=== PATIENT | male | born 1960 | race African-American/Black ===

== ENCOUNTER 2020-04-26 06:08 | Outpatient (CLI) | payer OTHER ==
[2020-05-02] MEDS ORDERED: ASPI-992 PO (11:15)
[2020-05-02] MEDS ORDERED: CYCL10TA9 PO (11:15)
[2020-05-02] MEDS ORDERED: OXYC5CAP18 PO (11:15)
== END 2020-04-26 23:59 | disposition home or self-care (01) ==
LOC: LAB 06:08
PROVIDERS: ATTEND Specialist
DX: Z01.812 Encounter for preprocedural laboratory examination (principal); Z20.828 Contact with and (suspected) exposure to other viral communicable diseases
CPT/HCPCS: 87426; C9803 ×2; U0003

== ENCOUNTER 2020-04-30 05:11 | Inpatient (IN) | payer OTHER ==
[~2020-04-30] VITALS: Ht 180.3 cm; Wt 99.8 kg
[2020-04-30] MEDS ORDERED: BACITRACIN 50000 UNITS/VIAL ONE (05:50)
[2020-04-30] MEDS ORDERED: BUPIVACAINE 0.5 % PF 150 MG/30 ML VIAL ONE (05:50)
[2020-04-30] MEDS ORDERED: MIDAZOLAM HCL 2 MG/2ML VIAL ONE (06:06)
[2020-04-30] MEDS ORDERED: FENTANYL PF 250MCG/5ML AMPUL ONE (06:07)
[2020-04-30] MEDS ORDERED: HYDROMORPHONE INJ 2 MG/ML DISP.SYRIN ONE (06:07)
[2020-04-30] MEDS ORDERED: BUPIVACAINE 0.25% 75 MG/30 ML VIAL ONE ×2 (06:08→08:43)
[2020-04-30] MEDS ORDERED: TRANEXAMIC ACID 3,000 MG in SODIUM CHLORIDE IRRIG SOLUTION 70 ML IR ONE (07:00)
[2020-04-30] MEDS ORDERED: HYDROMORPHONE 1 MG/1 ML DISP.SYRIN ONE (09:55)
[2020-04-30] MEDS ORDERED: IV D5/ 0.9% NACL 1,000 ML IV PRN (10:00)
[2020-04-30] MEDS ORDERED: ONDANSETRON HCL/PF 4 MG/2 ML VIAL IVP PRN ×2 (10:00→11:00)
[2020-04-30] MEDS ORDERED: HYDROCODONE/APAP 5/325MG TABLET PO PRN (10:00)
[2020-04-30] MEDS ORDERED: ACETAMINOPHEN 325 MG TABLET PO PRN (10:00)
[2020-04-30] MEDS ORDERED: DOCUSATE SODIUM 250 MG CAPSULE PO PRN (10:00)
[2020-04-30] MEDS ORDERED: ZOLPIDEM TARTRATE 5 MG TABLET PO PRN (10:00)
[2020-04-30] MEDS ORDERED: SENNOSIDES 8.6 MG TABLET PO PRN (10:00)
[2020-04-30] MEDS ORDERED: BISACODYL SUPP (10 MG) 10 MG/SUPP.RECT SUPP.RECT RC PRN (10:00)
[2020-04-30 10:45] VITALS: BP 153/94
--- NOTE | 2020-04-30 10:45 | NUR ---
RECEIVED PT FROM [facility]. S/P LT KNEE TOTAL ARTHROPLASTY BY DR LEVIN. PT IS ALERT AND IS SLEEPY.ON O2 AT 2L/MIN VIA NC. O2 SAT 98%NV/S 153/94 HR 93 RR 16 T 97.8 O2 SAT 98%.WITH LT KNEE SURGICAL KNEE WOUND DRSG CLEAN,INTACT AND DRY. FOR P.T. EVAL WITH FWB ON LLE WITH ORTHO ORDERS CARRIED OUT. FOR INCENTIVE SPIROMETER Q 1 HR WHILE AWAKE, DR CANTRELL FOR PAIN MGT.ROOM ORIENTATION AND USE OF CALL LIGHT PROVIDED.WILL MONITOR.CALL LIGHT PLACED WITHIN REACH.
[2020-04-30] MEDS ORDERED: NALOXONE HCL 0.4 MG/ML AMPUL IV PRN (11:00)
[2020-04-30] MEDS ORDERED: MAG HYDROX/AL HYDROX/SIMETH 30 ML UDC PO PRN (11:00)
[2020-04-30] MEDS ORDERED: CLONIDINE HCL 0.1 MG TABLET PO PRN (11:00)
[2020-04-30] MEDS ORDERED: diphenhydrAMINE HCL 25 MG CAPSULE PO PRN (11:00)
[2020-04-30] MEDS ORDERED: MENTHOL/CETYLPYRD (CEPACOL) 1 LOZ LOZENGE MM PRN (11:00)
[2020-04-30] MEDS ORDERED: MAGNESIUM HYDROXIDE 30 ML UDC PO PRN (11:00)
[2020-04-30 12:00] VITALS: BP 143/75
[2020-04-30] MEDS: HYDROMORPHONE 1 MG/1 ML DISP.SYRIN SQ PRN ×2 (12:38→18:10)
[2020-04-30] MEDS: TAMSULOSIN 0.4 MG CAP.SR.24H PO SCH (12:39)
[2020-04-30] MEDS: ANCEF 1 GM/50 ML D5W IV SCH ×4 (15:35→23:17)
[2020-04-30 16:00] VITALS: BP 147/86
[2020-04-30] MEDS: DOCUSATE SODIUM 100 MG CAPSULE PO SCH (17:29)
--- NOTE | 2020-04-30 18:00 | NUR ---
SEEN BY DR CANTRELL FOR PAIN MGT WITH ORDERS MADE AND CARRIED OUT.
[2020-04-30] MEDS ORDERED: OXYC1TAB12 MT (18:49)
[2020-04-30] MEDS ORDERED: CYCL10TA9 PO (18:49)
[2020-04-30] MEDS ORDERED: oxyCODONE IR immediate release 5 MG PO ONE (18:55)
--- NOTE | 2020-04-30 19:00 | NUR ---
PT COMFORTABLY RESTING AT THIS TIME WITH CALL LIGHT PLACED WITHIN REACH.IVF DC'D.
[2020-04-30 20:00] VITALS: BP 143/96
[2020-04-30] MEDS: FAMOTIDINE (20 MG) 20 MG TABLET PO SCH (21:24)
[2020-04-30] MEDS: HYDROMORPHONE 1 MG/1 ML DISP.SYRIN IV PRN (21:31)
[2020-05-01] MEDS: oxyCODONE IR immediate release 5 MG PO PRN ×3 (00:21→17:56)
[2020-05-01] MEDS: HYDROMORPHONE 1 MG/1 ML DISP.SYRIN IV PRN ×4 (05:11→21:21)
[2020-05-01] MEDS: CYCLOBENZAPRINE 10 MG TABLET PO PRN (05:53)
[2020-05-01 07:06] LABS: BASOPHILS % (AUTO) 0.2 % (0.0-2.0); EOSINOPHILS % (AUTO) 0.5 % (0.0-6.0); HEMATOCRIT 46 % (39-51); HEMOGLOBIN 15.4 g/dL (13.5-17.5); LYMPHOCYTES # (AUTO) 0.6 /CMM (0.8-4.8); LYMPHOCYTES % (AUTO) 7.9 % (20.0-44.0); MEAN CORPUSCULAR HGB CONC 34 g/dl (31.0-36.0); MEAN CORPUSCULAR VOLUME 95 fL (80-96); MONOCYTES # (AUTO) 0.6 /CMM (0.1-1.30); MONOCYTES % (AUTO) 7.1 % (2.0-12.0); NEUTROPHILS # (AUTO) 6.7 /CMM (1.8-8.9); NEUTROPHILS % (AUTO) 84.3 % (43.0-81.0); PLATELET COUNT (AUTO) 213 /CMM (150-450)
[2020-05-01 07:23] LABS: CALCIUM, SERUM 8.5 mg/dL (8.5-10.1); MAGNESIUM 2.1 mg/dL (1.8-2.4); PHOSPHORUS 2.7 mg/dL (2.5-4.9); POTASSIUM 4.4 mmol/L (3.5-5.1)
[2020-05-01 07:35] LABS: THYROID STIMULATING HORMONE 0.349 uIU/mL (0.358-3.74)
--- NOTE | 2020-05-01 07:53 | NUR ---
MS/RN OPENING NOTES RECEIVED PATIENT ON BED, AWAKE, ALERT AND ORIENTED X 4. NO COMPLAINED OF PAIN AT THIS TIME. NO APPARENT RESPIRATORY DISTRESS NOTED. WILL CONTINUE TO MONITOR.
[2020-05-01 08:00] VITALS: BP 139/91
[2020-05-01] MEDS: DOCUSATE SODIUM 100 MG CAPSULE PO SCH ×2 (09:17→17:56)
[2020-05-01] MEDS: TAMSULOSIN 0.4 MG CAP.SR.24H PO SCH (09:17)
[2020-05-01] MEDS: FAMOTIDINE (20 MG) 20 MG TABLET PO SCH ×2 (09:17→21:19)
[2020-05-01] MEDS: ASPIRIN 325 MG TABLET PO SCH (09:17)
--- NOTE | 2020-05-01 19:06 | NUR ---
MS/RN CLOSING NOTES PATIENT IS ON BED, ALERT AND ORIENTED X4. PATIENT IN NO APPARENT RESPIRATORY DISTRESS NOTED. PATIENT DENIES PAIN AT THIS TIME. PATIENT REFUSED TO CHANGE THE DRESSING. SEEN AND EXAMINED BY MD WITH ORDERS MADE AND CARRIED OUT. ALL DUE MEDICATIONS WAS GIVE. SAFETY PRECAUTIONS WAS IN PLACED. WILL ENDORSED TO RETRIEVAL SPECIALIST FOR JOSUE.
--- NOTE | 2020-05-01 19:30 | NUR ---
RN OPENING NOTES Received patient, awake on bed, watching TV. No complaints made at this time. Kept on bed clean, dry and comfortable. On fall and aspiration precautions. Will continue to monitor accordingly.
[2020-05-01 20:00] VITALS: BP 144/71
--- NOTE | 2020-05-01 21:25 | NUR ---
MS RN NOTE: PAIN patient verbalized c/o pain 8/10 to left knee, requested to get Dilaudid at this time. prn Dilaudid given as ordered. will continue to monitor.
[2020-05-01 22:00] VITALS: BP 135/82
[2020-05-02] MEDS: oxyCODONE IR immediate release 5 MG PO PRN ×2 (02:25→12:48)
--- NOTE | 2020-05-02 02:29 | NUR ---
MS RN NOTE: LEFT KNEE PAIN PATIENT C/O LEFT KNEE PAIN 07/17, REQUESTED TO GET PAIN MEDICINE, PRN OXYCODONE IR 5 MG 1 TAB PO GIVEN. WILL REASSESS FOR THE EFFECTIVENESS.
--- NOTE | 2020-05-02 04:50 | NUR ---
MS RN NOTE: SEEN BY DR. CANTRELL PATIENT SEEN BY DR. CANTRELL & MD DISCUSSED PLAN OF CARE WITH THE PATIENT & PER PATIENT HE WOULD LIKE TO BE DISCHARGED BACK HOME ON 05/03/2020. DR. CANTRELL IS AWARE & WILL ENDORSE TO AM RN WELL.
[2020-05-02] MEDS ORDERED: MAGNESIUM HYDROXIDE 30 ML UDC PO ONE (04:58)
--- NOTE | 2020-05-02 05:12 | NUR ---
MS RN NOTE DR. CANTRELL ORDERED MILK OF MAGNESIA ONCE, ORDER NOTED & CARRIED OUT. MILK OF MAGNESIA ADMINISTERED TO THE PATIENT & TOLERATED WELL. WILL CONTINUE TO MONITOR.
--- NOTE | 2020-05-02 07:41 | NUR ---
MS RN NOTE: REFUSED LEFT KNEE DRESSING CHANGE INFORMED THE PATIENT THAT HIS DRESSING NEEDS TO BE CHANGED, PER AM RN ON 05/01/2020, PATIENT REFUSED TO CHANGE HIS DRESSING ORDERED. PATIENT AGAIN REFUSED TO GET HIS DRESSING CHANGED & STATED," LATER.' ENDORSED TO AM RN TO CHANGE THE DRESSING DURING AM SHIFT.
--- NOTE | 2020-05-02 07:46 | NUR ---
MS RN CLOSING NOTE NO ACUTE CHANGES NOTED THROUGH OUT THE SHIFT. PAIN MANAGEMENT DONE. KEPT PATIENT COMFORTABLE. PATIENT IN STABLE CONDITION. ENDORSED TO AM RN FOR CONTINUITY OF CARE.
--- NOTE | 2020-05-02 08:00 | NUR ---
RN OPENING NOTES PATIENT PRESENT IN BED, A/OX4, ON BED REST, LEFT KNEE AND LEG POST SURGICAL DRESSING IN PLACE, ON ROOM AIR, TOLERATING WELL, SPO2 IS 99%, SPIROMETER AT BED SITE, ENCOURAGE TO USE IT, L AC IV LINE IN PACE, INTACT AND PATENT, SAFETY MEASURES IN PLACE, CALL LIGHT IN REACH, BED IS BRIDGER IN LOWEST POSITION, HOB ELEVATED , WILL CONT TO MONITOR ,
[2020-05-02] MEDS: HYDROMORPHONE 1 MG/1 ML DISP.SYRIN IV PRN (08:56)
[2020-05-02] MEDS: DOCUSATE SODIUM 100 MG CAPSULE PO SCH ×2 (09:02→17:30)
[2020-05-02] MEDS: FAMOTIDINE (20 MG) 20 MG TABLET PO SCH (09:02)
[2020-05-02] MEDS: ASPIRIN 325 MG TABLET PO SCH (09:02)
[2020-05-02 09:10] LABS: BASOPHILS # (AUTO) 0.1 /CMM (0.0-0.2); BASOPHILS % (AUTO) 0.9 % (0.0-2.0); EOSINOPHILS % (AUTO) 0.8 % (0.0-6.0); HEMATOCRIT 46 % (39-51); LYMPHOCYTES # (AUTO) 1.1 /CMM (0.8-4.8); LYMPHOCYTES % (AUTO) 11.5 % (20.0-44.0); MEAN CORPUSCULAR HGB CONC 33 g/dl (31.0-36.0); MEAN CORPUSCULAR VOLUME 96 fL (80-96); MONOCYTES # (AUTO) 1.1 /CMM (0.1-1.30); MONOCYTES % (AUTO) 11.7 % (2.0-12.0); NEUTROPHILS # (AUTO) 7.3 /CMM (1.8-8.9); NEUTROPHILS % (AUTO) 75.1 % (43.0-81.0); PLATELET COUNT (AUTO) 196 /CMM (150-450); RED BLOOD CELL COUNT(AUTO) 4.75 MIL/uL (4.5-6.0); WHITE BLOOD COUNT (AUTO) 9.7 K/uL (4.3-11.0)
[2020-05-02 09:16] LABS: MAGNESIUM 2.3 mg/dL (1.8-2.4); PHOSPHORUS 2.4 mg/dL (2.5-4.9); POTASSIUM 4.9 mmol/L (3.5-5.1)
--- NOTE | 2020-05-02 10:30 | NUR ---
SEEN BY DR NEGRETE, DISCUSS POSSIBLE DISCHARGE
[2020-05-02] MEDS ORDERED: OXYC5CAP18 PO (11:15)
[2020-05-02] MEDS ORDERED: CYCL10TA9 PO (11:15)
[2020-05-02] MEDS ORDERED: ASPI-992 PO (11:15)
[2020-05-02] MEDS ORDERED: NEUTRA PHOS 1 POWD.PACKET PO ONE (12:30)
[2020-05-02] MEDS: CYCLOBENZAPRINE 10 MG TABLET PO PRN (14:45)
--- NOTE | 2020-05-02 18:54 | NUR ---
patient is ready for discharge awaiting for friend Melissa for pharmacy picking technician
--- NOTE | 2020-05-02 19:30 | NUR ---
picked up by darby, discharge paperwork provided, IV and ID band removed
== END 2020-05-02 19:00 | disposition home or self-care (01) | DRG 470 ==
LOC: DS 05:11 → MED 09:38
PROVIDERS: ADMIT Student in an Organized Health Care Education/Training Program; ATTEND Student in an Organized Health Care Education/Training Program
PROC: 0SRD0J9 Replacement of Left Knee Joint with Synthetic Substitute, Cemented, Open Approach (ICD-10-PCS; principal; 2020-04-30)
DX: M17.12 Unilateral primary osteoarthritis, left knee (principal); E66.9 Obesity, unspecified; Z68.30 Body mass index [BMI] 30.0-30.9, adult; R03.0 Elevated blood-pressure reading, without diagnosis of hypertension; M19.90 Unspecified osteoarthritis, unspecified site; Y99.0 Civilian activity done for income or pay
CPT/HCPCS: 36415; 80048-TC; 80061-TC; 83735-TC; 84100-TC; 84439-TC; 84443-TC; 85025-TC; 87081-TC; 88305-TC; 88311-TC; 97112-TC; 97116-TC; 97530-TC; 97760-TC; G0378; J0690; J1170; J2250; J2405; J2765; J3010; J3490; J7042; J7060